=== PATIENT | male | born 1960 | race Caucasian/White ===

== ENCOUNTER 2018-12-01 12:07 | Outpatient (CLI) | payer OTHER ==
--- NOTE | 2018-12-01 12:33 | RAD ---
Chest 2 views HISTORY: Dyspnea. COMPARISON: 11/12/2015. FINDINGS: Cardiac silhouette and pulmonary vasculature is unremarkable. Mediastinum is midline. No co nfluent airspace consolidation, pneumothorax, or pleural fluid. IMPRESSION: No active cardiopulmonary abnormalities are demonstrated.
== END 2018-12-01 12:08 | disposition home or self-care (01) ==
LOC: RAD 12:07
PROVIDERS: ATTEND Internal Medicine
DX: R06.00 Dyspnea, unspecified (principal)
CPT/HCPCS: 71046

== ENCOUNTER 2019-06-09 11:42 | Outpatient (CLI) | payer OTHER ==
[2019-06-09 12:32] LABS: Actual Bicarbonate (HCO3a) 28.5 mEq/L (22-28); Analyzer IN Cardio OR; Base Excess (BEa) 2.5 mEq/L (-2.0 to +3.0); CO2 Tension 49.3 mmHg (35.0-45.0); Calcium, Ionized 1.19 mmol/L (1.12-1.30); Hemoglobin (Hb) 14.8 g/dL (14.0-18.0); O2 Tension (PaO2) 70.9 mmHg (80.0-100.0); pH, Arterial 7.38 (7.35-7.45)
[2019-06-09 12:40] LABS: ALV-art Gradient 17.205 (0-20); Puncture Site RR
--- NOTE | 2019-06-10 10:20 | PFT ---
PATIENT HISTORY: HEIGHT: 66.5 IN WEIGHT: 180 LBS SMOKER: NO HOW LON YRS PACKS PER DAY: 2 PRODUCTIVE COUGH: NO LUNG DISEASE: PHYSICIAN INTERPRETATION FINAL REPORT: Patient had good effort and good cooperation. pH 7.38 PCO2 49, PO2 71, corresponding to a saturation of 95%. FVC 2.40 (57%), FEV1 1.42 (44%), FEV1/FVC 0.59. RV 1.92 (84%), TLC 3.96 (61%) DIFFUSION 14.03 (48%) There is a reduction to both the FEV1 and FVC. The ratio is slightly reduced, though the drop in FEV1 is out of proportion to the ratio. There is no significant improvement following the administration of a bronchodilator. Residual Volume falls with in the normal limits. Total Lung Capacity is reduced. Diffusion capacity is moderately impaired. IMPRESSION: Overall, these pulmonary function studies are most consistent with moderately severe to severe ventilatory deficit that is coming from a combined obstructive and restrictive profile. Clinical and radiographic correlation should be considered. [employer] Scheduler: [employer] Teacher: ELY ROMAN
== END 2019-06-09 11:43 | disposition home or self-care (01) ==
LOC: CP 11:42
PROVIDERS: ATTEND Internal Medicine
DX: R06.09 Other forms of dyspnea (principal); G47.33 Obstructive sleep apnea (adult) (pediatric)
CPT/HCPCS: 82805; 94060; 94727; 94729

== ENCOUNTER 2019-09-13 12:31 | Outpatient (CLI) | payer OTHER ==
--- NOTE | 2019-09-13 13:32 | RAD ---
EXAM: Sniff test for diaphragmatic motion COMPARISON: Chest x-ray 11/12/2015, 12/01/2018 EXPOSURE: 0.6 minutes fluoroscopic time; 2.415 Gy per centimeter squared FINDINGS: The right diaphragm is elevated compared to the left. This is unchanged compared to the exam from 201 6. The right diaphragm moves and demonstrates a normal excursion with inspiration and expiration. The left diaphragm moves and demonstrates a normal excursion with inspiration and expiration. IMPRESSION: No evidence of diaphragm paralysis.
== END 2019-09-13 12:32 | disposition home or self-care (01) ==
LOC: RAD 12:31
PROVIDERS: ATTEND Internal Medicine
DX: J98.6 Disorders of diaphragm (principal)
CPT/HCPCS: 76000